=== PATIENT | male | born 1965 | race Caucasian/White ===

== ENCOUNTER 2019-04-18 13:50 | Emergency (ER) | payer BC, OTHER ==
[~2019-04-18] VITALS: Ht 177.8 cm; Wt 92.2 kg
[2019-04-18 14:07] VITALS: Ht 177.8 cm; Wt 92.2 kg
[2019-04-18] MEDS ORDERED: LORAZEPAM 2 MG INJ IV ONE (16:00)
[2019-04-18 19:40] VITALS: BP 124/70; PULSE 59; RESP 16
== END 2019-04-18 19:49 | disposition home or self-care (01) ==
LOC: E/R 13:50
DX: F41.9 Anxiety disorder, unspecified (principal); F17.210 Nicotine dependence, cigarettes, uncomplicated
CPT/HCPCS: 36415; 71045; 80048; 84443; 84484; 85025; 93005; 96374; 99285; J2060